=== PATIENT | male | born 1985 | race Caucasian/White ===

== ENCOUNTER 2016-09-19 05:17 | Emergency (ER) | payer OTHER ==
[2016-09-19 06:47] VITALS: BP 127/82
== END 2016-09-19 06:47 | disposition home or self-care (01) ==
LOC: ED 05:17
DX: M54.5 Low back pain (principal)
CPT/HCPCS: J3010

== ENCOUNTER 2016-10-05 05:31 | Emergency (ER) | payer OTHER ==
[2016-10-05 07:05] VITALS: BP 140/80
== END 2016-10-05 07:05 | disposition home or self-care (01) ==
LOC: ED 05:31
DX: J20.8 Acute bronchitis due to other specified organisms (principal)
CPT/HCPCS: Q0092

== ENCOUNTER 2016-10-23 19:28 | Emergency (ER) | payer OTHER ==
[2016-10-23 19:50] LABS: microscopic required? NO
[2016-10-23 20:03] LABS: UA SPECIFIC GRAVITY >=1.030 (1.005-1.035); urine erythrocyte NEGATIVE (NEGATIVE)
[2016-10-23 20:04] LABS: BASOPHIL % 0.3 % (0-2); PLATELET COUNT 243 x10^3mcL (130-400); RED CELL DISTRIBUTION WIDTH 13.7 % (11.5-14.5)
[2016-10-23 20:10] LABS: CALCIUM 8.2 mg/dL (8.5-10.1); CARBON DIOXIDE 29.1 mmol/L (21-32); CHLORIDE SERUM 104 mmol/L (98-107); CREATININE SERUM 1.1 mg/dL (0.7-1.3); GFR1 > 60 mL/min; GLUCOSE SERUM 114 mg/dL (74-106); SODIUM SERUM 141 mmol/L (136-145)
[2016-10-23 20:15] LABS: ALBUMIN 3.5 g/dL (3.4-5.0); ALKALINE PHOSPHATASE 55 U/L (46-116); ALT/SGPT 27 U/L (16-63); AMYLASE 60 U/L (25-115); AST/SGOT 15 U/L (15-37); BILIRUBIN TOTAL 0.3 mg/dL (0.20-1.00); LIPASE 163 IU/L (73-393); TOTAL PROTEIN, SERUM 7.1 g/dL (6.4-8.2)
[2016-10-23 21:33] VITALS: BP 113/65
== END 2016-10-23 21:33 | disposition home or self-care (01) ==
LOC: ED 19:28
PROVIDERS: Emergency Medicine
DX: R10.9 Unspecified abdominal pain (principal); Z87.442 Personal history of urinary calculi
CPT/HCPCS: 83880; J1885; J7030

== ENCOUNTER 2017-06-10 21:53 | Emergency (ER) | payer OTHER | END 2017-06-10 23:02 | disposition home or self-care (01) | LOC: ED 21:53 | DX: Z53.21 Procedure and treatment not carried out due to patient leaving prior to being seen by health care provider (principal) ==

== ENCOUNTER 2018-08-12 02:16 | Emergency (ER) | payer OTHER ==
[~2018-08-12] VITALS: Ht 172.7 cm; Wt 79.4 kg
[2018-08-12 02:23] VITALS: BP 144/87; Ht 172.7 cm; Wt 79.4 kg
== END 2018-08-12 05:00 | disposition home or self-care (01) ==
LOC: ED 02:16
DX: H16.8 Other keratitis (principal); Z98.890 Other specified postprocedural states; Z87.442 Personal history of urinary calculi
CPT/HCPCS: J1885; J2270

== ENCOUNTER 2018-11-09 12:08 | Emergency (ER) | payer OTHER ==
[~2018-11-09] VITALS: Ht 175.3 cm; Wt 81.2 kg
[2018-11-09 12:16] VITALS: BP 120/68; Ht 175.3 cm; Wt 81.2 kg
== END 2018-11-09 12:38 | disposition home or self-care (01) ==
LOC: ED 12:08
DX: J02.0 Streptococcal pharyngitis (principal); Z98.890 Other specified postprocedural states; R59.1 Generalized enlarged lymph nodes
CPT/HCPCS: J1100

== ENCOUNTER 2018-11-11 14:27 | Emergency (ER) | payer OTHER ==
[~2018-11-11] VITALS: Ht 175.3 cm; Wt 81.6 kg
[2018-11-11 14:34] VITALS: Ht 175.3 cm; Wt 81.6 kg
[2018-11-11 20:02] VITALS: BP 112/68
== END 2018-11-11 20:02 | disposition home or self-care (01) ==
LOC: ED 14:27
DX: J36 Peritonsillar abscess (principal); Z87.442 Personal history of urinary calculi
CPT/HCPCS: J0295; J1100; J1885; J7030

== ENCOUNTER 2019-03-12 18:27 | Emergency (ER) | payer OTHER ==
[~2019-03-12] VITALS: Ht 170.2 cm; Wt 81.6 kg
[2019-03-12 18:37] VITALS: Ht 170.2 cm; Wt 81.6 kg
[2019-03-12 21:33] VITALS: BP 136/72
== END 2019-03-12 21:33 | disposition home or self-care (01) ==
LOC: ED 18:27
DX: S05.91XA Unspecified injury of right eye and orbit, initial encounter (principal); H40.9 Unspecified glaucoma; Z87.442 Personal history of urinary calculi; X58.XXXA Exposure to other specified factors, initial encounter; Y93.89 Activity, other specified; Y92.89 Other specified places as the place of occurrence of the external cause; Y99.8 Other external cause status

== ENCOUNTER 2019-07-03 12:52 | Emergency (ER) | payer OTHER ==
[~2019-07-03] VITALS: Ht 172.7 cm; Wt 80.3 kg
[2019-07-03 13:09] VITALS: BP 128/91; Ht 172.7 cm; Wt 80.3 kg
== END 2019-07-03 14:41 | disposition home or self-care (01) ==
LOC: ED 12:52
DX: S90.32XA Contusion of left foot, initial encounter (principal); Z98.890 Other specified postprocedural states; Z87.442 Personal history of urinary calculi; W01.0XXA Fall on same level from slipping, tripping and stumbling without subsequent striking against object, initial encounter; Y93.02 Activity, running; Y92.89 Other specified places as the place of occurrence of the external cause; Y99.8 Other external cause status

== ENCOUNTER 2019-08-02 22:25 | Emergency (ER) | payer OTHER ==
[~2019-08-02] VITALS: Ht 177.8 cm; Wt 80.3 kg
[2019-08-02 22:30] VITALS: Ht 177.8 cm; Wt 80.3 kg
[2019-08-02 23:14] LABS: microscopic required? NO
[2019-08-02 23:26] LABS: UA SPECIFIC GRAVITY >=1.030 (1.005-1.035); urine erythrocyte NEGATIVE (NEGATIVE)
[2019-08-02 23:32] LABS: BASOPHIL % 0.5 % (0-2); PLATELET COUNT 296 x10^3mcL (130-400); RED CELL DISTRIBUTION WIDTH 13.3 % (11.5-14.5)
[2019-08-03 00:09] LABS: CALCIUM 8.7 mg/dL (8.5-10.1); CARBON DIOXIDE 32.7 mmol/L (21-32); CHLORIDE SERUM 105 mmol/L (98-107); CREATININE SERUM 1.2 mg/dL (0.7-1.3); GFR1 > 60 mL/min; GLUCOSE SERUM 108 mg/dL (74-106); POTASSIUM SERUM 4.5 mmol/L (3.5-5.1); SODIUM SERUM 143 mmol/L (136-145)
[2019-08-03 00:16] LABS: ALBUMIN 3.7 g/dL (3.4-5.0); ALKALINE PHOSPHATASE 77 U/L (46-116); ALT/SGPT 29 U/L (16-63); AST/SGOT 14 U/L (15-37); BILIRUBIN TOTAL 0.2 mg/dL (0.20-1.00); TOTAL PROTEIN, SERUM 7.7 g/dL (6.4-8.2)
[2019-08-03 02:32] VITALS: BP 142/88
== END 2019-08-03 02:03 | disposition left against medical advice (07) ==
LOC: ED 22:25
PROVIDERS: Emergency Medicine
DX: R31.9 Hematuria, unspecified (principal); R10.9 Unspecified abdominal pain; Z98.890 Other specified postprocedural states
CPT/HCPCS: 36415; 87491; 87591

== ENCOUNTER 2020-07-14 21:50 | Emergency (ER) | payer OTHER ==
[~2020-07-14] VITALS: Ht 172.7 cm; Wt 81.6 kg
[2020-07-14 21:52] VITALS: Ht 172.7 cm; Wt 81.6 kg
[2020-07-14 22:31] VITALS: BP 144/101
== END 2020-07-14 22:31 | disposition home or self-care (01) ==
LOC: ED 21:50
DX: N39.0 Urinary tract infection, site not specified (principal); Z87.442 Personal history of urinary calculi
CPT/HCPCS: 87491; 87591; J0696